=== PATIENT | female | born 1985 | race Two or more races ===

== ENCOUNTER 2020-12-17 16:09 | Inpatient (IN) | payer MEDICAID, OTHER, SELFPAY ==
[2020-12-17] VITALS (13 sets, daily range): BP systolic 98–109; BP diastolic 61–71; PULSE 80–96; RESP 13–18; TEMP 36.2–37.3; O2SAT 100; BMI 21.7
--- NOTE | 2020-12-17 | ECG_ITS ---
Test Reason : CHEST PAIN Blood Pressure : / mmHG Vent. Rate : 095 BPM Atrial Rate : 095 BPM P-R Int : 118 ms QRS Dur : 070 ms QT Int : 358 ms P-R-T Axes : 039 057 032 degrees QTc Int : 449 ms Normal sinus rhythm Normal ECG No previous ECGs available Referred By: Generic ED Physician Electronically Signed By:DEANDRA BRIONES MD
--- NOTE | ~2020-12-17 | XR_ITS ---
EXAMINATION: XR CHEST CLINICAL INFORMATION: SOB COMPARISON: None TECHNIQUE: Frontal view of the chest was obtained. FINDINGS: No significant abnormality is noted involving the heart, lungs, mediastinum, bony thorax or soft tissues. XR/XR chest 1V IMPRESSION: No acute cardiopulmonary process.
--- NOTE | ~2020-12-17 | CT_ITS ---
EXAMINATION: CT ABDOMEN PELVIS WITH IV CONTRAST CLINICAL INFORMATION: History of abdominal pain and colitis. Lower GI bleeding. COMPARISON: CXR from 12/17/2020. TECHNIQUE: Noncontrast as well as contrast-enhanced volumetric helical CT acquisition of the abdomen and pelvis. Axial images are presented at 0.6 mm and 5 mm slice thickness. Coronal and sagittal reformatted images were generated at the technologist workstation. Intravenous contrast: 85 mL of Omnipaque 350. This CT examination was performed using dose optimization techniques as appropriate, variously including the following: *Automated exposure control *Adjustment of mA and/or kV according to patient size (this includes techniques or standardized protocols for targeted exams where dose is matched to indication/reason for exam; i.e. extremities or head) *Use of iterative reconstruction technique DLP: 611 mGy-cm. FINDINGS: LUNG BASES: Unremarkable. LIVER, GALLBLADDER, AND BILIARY TREE: Liver has normal size and contour. There is a focal area of steatosis in the left lobe adjacent to the falciform ligament. No suspicious hepatic lesion. Gallbladder is underdistended. No radiopaque gallstones. No intrahepatic or extrahepatic bile duct dilatation. PANCREAS: Normal. No evidence of pancreatic mass, edema or ductal dilatation. SPLEEN: Normal. ADRENAL GLANDS: Normal. KIDNEYS AND URETERS: The kidneys have normal size, shape, and attenuation. No evidence of renal mass, hydroureteronephrosis, urolithiasis or perinephric edema. BLADDER: Unremarkable. BOWEL AND PERITONEUM: Stomach and small bowel have a normal appearance. Appendix is normal. The wall of the colon is diffusely thickened, consistent with pancolitis. There are regions of mild haziness of pericolonic fat along the descending colon. No pneumatosis intestinalis or pneumoperitoneum. No evidence of contrast extravasation into the lumen of the gastrointestinal tract. No pneumoperitoneum. ABDOMINAL WALL: Unremarkable. LYMPH NODES: No retroperitoneal, iliac or inguinal lymphadenopathy. A few mildly enlarged lymph nodes are seen within the mesentery, largest measuring up to 0.8 cm short axis dimension, likely reactive to the colonic inflammation. VASCULATURE: Abdominal aorta is normal in caliber and its branches are widely patent. Inferior vena cava is normal. PELVIC VISCERA: The anteflexed, anteverted uterus has normal size and contour. No adnexal mass. No pelvic free fluid. MUSCULOSKELETAL: Unremarkable. CT/CT gi bleed abd pel wo/w con IMPRESSION: * Findings are consistent with diffuse colitis. * No CT imaging evidence of an active gastrointestinal bleed.
[2020-12-17 16:44] LABS: MANUAL DIFF FLAG NO
[2020-12-17 16:45] LABS: Basophils Percent Auto 0.2 % (0-2); Eosinophils Absolute Auto 0.4 X10*3/uL (0.0-0.4); Eosinophils Percent Auto 5.3 % (0-4); Imm Gran Abs Auto 0.02 X10*3/uL (0.00-0.03); Imm Gran Pct Auto 0.2 % (0.0-0.4); Lymphocytes Absolute Auto 2.1 X10*3/uL (1.2-4.9); Lymphocytes Percent Auto 26.1 % (20-40); Mean Corpuscular HGB Conc 29.4 g/dl (31.0-35.0); Mean Corpuscular Hemoglobin 21.8 pg (27.0-33.0); Mean Corpuscular Volume 74.1 fL (80-98); Mean Platelet Volume 8.7 fL (9.4-12.3); Monocytes Percent Auto 12.3 % (2-11); Neutrophils Absolute Auto 4.6 X10*3/uL (2.0-8.3); Neutrophils Percent Auto 55.9 % (45-73); Platelet Count 458 X10*3/uL (160-400); Red Blood Count 2.39 X10*6/uL (4.20-5.50); Red Cell Distribution Width 15.7 % (11.0-16.0); White Blood Count 8.2 X10*3/uL (4.8-10.8)
[2020-12-17 16:50] LABS: Hematocrit 17.7 % (37-47); Hemoglobin 5.2 g/dl (12.0-16.0)
[2020-12-17 17:25] LABS: Anion Gap 12 (12-20); Blood Urea Nitrogen 9 mg/dL (9-16); Calcium 8.2 mg/dL (8.4-10.2); Carbon Dioxide 21 mmol/L (22-29); Chloride 108 mmol/L (96-108); Creatinine Clr Calc Pharmacy 89.6; Estimated Glomerular Filt Rate > 60; Glucose Random 88 mg/dL (60-115); Sodium 137 mmol/L (135-145)
[2020-12-17 17:34] LABS: Troponin-I High Sensitivity < 3.5 ng/L (<3.5-17.0)
--- NOTE | 2020-12-17 17:38 | ED.GENADULT ---
HPI - General Adult General Chief complaint: General Medical Stated complaint: chest pressure Time Seen by Provider: 12/17/20 16:51 Source: patient and family Mode of arrival: ambulatory Limitations: no limitations History of Present Illness HPI narrative: 35 y/o female with history of colitis who presents to the ER from home with her partner c/o bloody diarrhea for the last 1 month. She reports at least 3 episodes per day of BRBPR, very watery and loose. She started having some cramping central abdominal pains that double her over a few days ago. She also reports new fatigue, generalized weakness, dizziness, shortness of breath, palpitations and chest pressure for about a week. She reports dealing with colitis for the last 3 years. She was seen by GI at [facility] in April 2020, had colonoscopy and started on mesalamine. She reports minimal improvement in her symptoms since then. The bleeding started about 1 month ago. MD complaint: bloody diarrhea and abdominal pain Onset (ago): week(s) (4) Location: abdomen Radiation: non-radiation Severity: severe Severity scale (1-10): 10 Quality: stabbing and sharp Pain Consistency: intermittent Relieving factors: none Exacerbating factors: none Associated symptoms: loss of appetite, malaise, shortness of breath and weakness Treatments prior to arrival: none Related Data Allergies Allergy/AdvReac Type Severity Reaction Status Date / Time No Known Allergies Allergy Unverified 03/04/20 19:48 [No Known Allergies*] Review of Systems Review of Systems: Constitutional: No Fever, No Chills ENT/Mouth: No sore throat, No Rhinorrhea, No Swallowing Difficulty Eyes: No Eye Pain, No Swelling, No Redness Cardiovascular: + Chest Pain, + SOB, No Orthopnea, No Edema Respiratory: No Cough, No Sputum, No Wheezing, + dyspnea Gastrointestinal: No Nausea, No Vomiting, + Diarrhea, + abdominal Pain, + Hematochezia, No Melena Genitourinary: No Dysuria, No Urinary Frequency, No Hematuria Musculoskeletal: No joint pain, No Myalgias Skin: No Skin Lesions, No rash Neuro: + Weakness, No Numbness, + Dizziness, No Headache Psych: + Anxiety/Panic, No Depression Heme/Lymph: No Bruising, No Lymphadenopathy Endocrine: No Polyuria, No Polydipsia PMFSH Past Medical History Attestation statement: The following information was validated with the patient. Medical History Colitis Social History Social History Alcohol intake: never Patient Tobacco Use Status: Never used Tobacco Smoked in Last 30 Days: No Use of substances other than those prescribed or required for medical reasons: No Any prior treatment program specific to substance use: No Advance Directives: Yes Advance Directives Information Provided: Yes Advance Directives on File: No Patient : No Physical Exam Vital Signs: Vital Signs: Last Vital Signs Temp 98.2 F 12/17/20 18:50 Pulse 84 12/17/20 18:50 Resp 16 12/17/20 18:50 BP 100/66 12/17/20 18:50 Pulse Ox 100 12/17/20 18:31 Body Mass Index 21.7 Appearance: Alert. Oriented X3. No acute distress. Pallor Eyes: Pupils equal, round and reactive to light. Conjuncitval pallor ENT: Pharynx normal. Neck: Normal inspection. Neck supple. CVS: Normal heart rate and rhythm. Pulses normal. Respiratory: No respiratory distress. Breath sounds normal. Abdomen: Soft and nontender. No rebound or guarding. +BS x4 Skin: Skin warm and dry. Pallor noted. Normal skin turgor. No rashes. Extremities: No lower extremity edema. Neuro: Oriented X 3. No motor deficit. No sensory deficit. Course Course Course Narrative: 35 yo female with history of colitis ?ulcerative colitis presenting with bloody diarrhea x1 month and signs and symptoms of acute blood loss anemia. VS are stable. Labs and CT scan ordered for further evalaution. Reevaluation(s) Reevaluation #1: H/H critically low at 5.2/17.7 from a baseline of 11.1/32.5 (over 1.5 years ago). Type and screen ordered and 2 units of blood for severe symptomatic anemia. consent in the chart. Patient will require admission. CT scan changed to GI bleed protocol. Reevaluation #2: CT scan showing diffuse colitis. No active bleeding. IV Levaquin and Flagyl ordered for colitis. Dr. Donis TT for admission. Medical Decision Making Lab Data Result diagrams: 12/17/20 16:39 12/17/20 16:39 Labs: Lab Results 12/17/20 12/17/20 12/17/20 Range/Units 16:39 16:39 16:39 WBC 8.2 (4.8-10.8) X10*3/uL RBC 2.39 L (4.20-5.50) X10*6/uL Hgb 5.2 L* (12.0-16.0) g/dl Hct 17.7 L* (37-47) % MCV 74.1 L (80-98) fL MCH 21.8 L (27.0-33.0) pg MCHC 29.4 L (31.0-35.0) g/dl RDW 15.7 (11.0-16.0) % Plt Count 458 H (160-400) X10*3/uL MPV 8.7 L (9.4-12.3) fL Immature Gran % (Auto) 0.2 (0.0-0.4) % Neut % (Auto) 55.9 (45-73) % Lymph % (Auto) 26.1 (20-40) % [place] % (Auto) 12.3 H (2-11) % Eos % (Auto) 5.3 H (0-4) % Baso % (Auto) 0.2 (0-2) % Lymph # (Auto) 2.1 (1.2-4.9) X10*3/uL [place] # (Auto) 1.0 (0.1-1.2) X10*3/uL Eos # (Auto) 0.4 (0.0-0.4) X10*3/uL Baso # (Auto) 0.0 (0.0-0.2) X10*3/uL Abs Immat Gran (auto) 0.02 (0.00-0.03) X10*3/uL Absolute Neuts (auto) 4.6 (2.0-8.3) X10*3/uL Absolute Nucleated RBC 0.000 (0.0-0.012) X10*3/uL Nucleated RBC % (auto) 0.0 (0.0-0.2) /100WBC Sodium 137 (135-145) mmol/L Potassium 4.0 (3.3-5.1) mmol/L Chloride 108 (96-108) mmol/L Carbon Dioxide 21 L (22-29) mmol/L Anion Gap 12 (12-20) BUN 9 (9-16) mg/dL Creatinine 0.82 (0.5-1.4) mg/dL Estim Creat Clear Calc 89.6 Estimated GFR > 60 Random Glucose 88 (60-115) mg/dL Lactic Acid (0.5-2.0) mmol/L Calcium 8.2 L (8.4-10.2) mg/dL Troponin I High Sens < 3.5 (<3.5-17.0) ng/L Blood Type Antibody Screen Crossmatch 12/17/20 12/17/20 Range/Units 17:05 17:22 WBC (4.8-10.8) X10*3/uL RBC (4.20-5.50) X10*6/uL Hgb (12.0-16.0) g/dl Hct (37-47) % MCV (80-98) fL MCH (27.0-33.0) pg MCHC (31.0-35.0) g/dl RDW (11.0-16.0) % Plt Count (160-400) X10*3/uL MPV (9.4-12.3) fL Immature Gran % (Auto) (0.0-0.4) % Neut % (Auto) (45-73) % Lymph % (Auto) (20-40) % [place] % (Auto) (2-11) % Eos % (Auto) (0-4) % Baso % (Auto) (0-2) % Lymph # (Auto) (1.2-4.9) X10*3/uL [place] # (Auto) (0.1-1.2) X10*3/uL Eos # (Auto) (0.0-0.4) X10*3/uL Baso # (Auto) (0.0-0.2) X10*3/uL Abs Immat Gran (auto) (0.00-0.03) X10*3/uL Absolute Neuts (auto) (2.0-8.3) X10*3/uL Absolute Nucleated RBC (0.0-0.012) X10*3/uL Nucleated RBC % (auto) (0.0-0.2) /100WBC Sodium (135-145) mmol/L Potassium (3.3-5.1) mmol/L Chloride (96-108) mmol/L Carbon Dioxide (22-29) mmol/L Anion Gap (12-20) BUN (9-16) mg/dL Creatinine (0.5-1.4) mg/dL Estim Creat Clear Calc Estimated GFR Random Glucose (60-115) mg/dL Lactic Acid 1.0 (0.5-2.0) mmol/L Calcium (8.4-10.2) mg/dL Troponin I High Sens (<3.5-17.0) ng/L Blood Type O Positive Antibody Screen NEGATIVE Crossmatch See Detail ECG Data Attestation: I personally reviewed and interpreted this ECG as follows: Interpretation: normal sinus rhythm, HR 95 bpm, normal TN interval, normal QTc, NO ST segment elevations or depressions Critical Care Time Critical Care Time Critical Care Time: Yes Total Critical Care Time: 60 Attestation: I have personally provided critical care time exclusive of time spent on separately billable procedures. Time includes review of lab data, radiology results, discussion with consultants, and monitoring for potential decompensation. Intervention performed as documented. Discharge Plan Discharge Clinical Impression: Acute blood loss anemia, Colitis Patient Disposition: Admitted As Inpatient
[2020-12-17] MEDS: iohexoL 350 MG/ML 100 ML INFUS..BTL IV (18:05)
--- NOTE | 2020-12-17 18:38 | PC.NURSE ---
IV established, pt has signed consent form nd is getting first unit of blood. She denies any SX of transfusion reaction at this time
--- NOTE | 2020-12-17 18:52 | PC.NURSE ---
pt states she has o symptoms of transusion reaction, no pain, no feer or chills, no SOB. will continue to monitor
--- NOTE | 2020-12-17 19:53 | PHA.MEDREC ---
Pharmacy Consult ? Medication Reconciliation Pharmacy has completed the medication reconciliation.
[2020-12-17] MEDS: metroNIDAZOLE/NS 500 MG/100 ML PIGGYBACK 100 MG IV (20:06)
[2020-12-17 20:14] LABS: COVID-19 Test Negative (Negative); IDNOW Serial# 9DD0AD1C
[2020-12-17] MEDS: levoFLOXacin/D5W 750 MG/150 ML PIGGYBACK 100 MG IV (21:30)
--- NOTE | 2020-12-17 21:59 | PC.NURSE ---
pt without cp, sob, difficulty breathing, back pain, abd pain, f/ch. Pt tolerating 2nd unit of blood without complaints/incidence.
[2020-12-17 22:49] LABS: Glucose, Whole Blood 87 mg/dL (60-115)
[2020-12-17] MEDS: methylPREDNISolone Sod Succ 40 MG/ML VIAL 20 MG IVPUSH (23:42)
[2020-12-17] MEDS: 0.9 % Sodium Chloride Flush 3 ML SYRINGE IVFLUSH (23:42)
[2020-12-18 00:07] VITALS: BMI 20.2
[2020-12-18 01:04] LABS: Hematocrit 25.4 % (37-47); Hemoglobin 7.8 g/dl (12.0-16.0)
[2020-12-18 04:00] VITALS: BP 107/62; PULSE 78; RESP 18; TEMP 36.7; O2SAT 99
[2020-12-18] MEDS: methylPREDNISolone Sod Succ 40 MG/ML VIAL 20 MG IVPUSH ×3 (05:22→22:48)
[2020-12-18 06:44] LABS: MANUAL DIFF FLAG NO
[2020-12-18 06:54] LABS: Basophils Absolute Auto 0.1 X10*3/uL (0.0-0.2); Basophils Percent Auto 0.7 % (0-2); Eosinophils Absolute Auto 0.5 X10*3/uL (0.0-0.4); Eosinophils Percent Auto 6.1 % (0-4); Hematocrit 24.5 % (37-47); Hemoglobin 7.6 g/dl (12.0-16.0); Imm Gran Abs Auto 0.04 X10*3/uL (0.00-0.03); Imm Gran Pct Auto 0.5 % (0.0-0.4); Lymphocytes Absolute Auto 1.6 X10*3/uL (1.2-4.9); Lymphocytes Percent Auto 21.1 % (20-40); Mean Corpuscular Hemoglobin 24.4 pg (27.0-33.0); Mean Corpuscular Volume 78.5 fL (80-98); Mean Platelet Volume 9.1 fL (9.4-12.3); Monocytes Absolute Auto 1.1 X10*3/uL (0.1-1.2); Monocytes Percent Auto 13.9 % (2-11); Neutrophils Absolute Auto 4.4 X10*3/uL (2.0-8.3); Neutrophils Percent Auto 57.7 % (45-73); Platelet Count 381 X10*3/uL (160-400); Red Blood Count 3.12 X10*6/uL (4.20-5.50); White Blood Count 7.5 X10*3/uL (4.8-10.8)
--- NOTE | 2020-12-18 06:56 | P.HPHOSP_ITS ---
History of Present Illness Date of Service: 12/18/20 Chief Complaint: abd pain, bloody diarrhea this is a 35-year-old female with past medical history of colitis who presents to the hospital with 1 month history of diarrhea and abdominal pain. Patient reports that her abdominal pain is localized to the middle of the abdomen radiating to the lower abdomen, feels crampy, 10/10, associated with bloody diarrhea about 5 to and today. Patient waited this long to come into the ED because she thought it would get better. Patient reports that she has not had a lot of follow-up outpatient due to lack of insurance. She denies any chest pain, no headache, no change in vision, no shortness of breath, no urinary symptoms and no lower extremity edema. Patient has been eating and drinking well, some nausea with no vomiting. On arrival to the ED patient hemodynamically stable with no significant abnormal vitals Labs are significant for WBC count of 8.2, hemoglobin of 5.2 which dropped from 11.1 on June of 2019, hematocrit of 17.7, CT abdomen showed diffuse colitis, with no evidence of gastrointestinal bleeding GI was consulted and patient will be admitted for further man Review of Systems Review of Systems: Yes all other systems are reviewed and are negative [facility] Medical History (Updated 12/18/20 @ 06:59 by Leonid Donis MD) Colitis History of ulcerative colitis Social History Household Members: Significant Other Housing: Apartment Alcohol intake: never Patient Tobacco Use Status: Never used Tobacco Smoked in Last 30 Days: No Patient Interested in Nicotine Replacement: No Patient Given Instructions on How to Stop Smoking: No Second Hand Smoke Exposure: No Use of substances other than those prescribed or required for medical reasons: No Currently Displaying Signs/Symptoms of Drug Intoxication Withdrawal: No Any prior treatment program specific to substance use: No Have you been hit, kicked, punched, or otherwise hurt by someone within the past year? If so, by whom?: No Do you feel safe in your current relationship?: Yes Is there a partner from a previous relationship who is making you feel unsafe now?: No Are you made to feel afraid or neglected: No Advance Directives: Yes Advance Directives Information Provided: Yes Advance Directives on File: No Advance Directives Date on File: 12/18/20 Do you have thoughts of harming others: None Do you have a plan to hurt others: No Plan Recently lost weight without trying: Yes How much weight loss: 2-13 pounds Eating poorly because of decreased appetite: Yes Nutrition screen score: 4 Patient : No : No Poor oral hygiene: No Meds Allergies Allergy/AdvReac Type Severity Reaction Status Date / Time No Known Allergies Allergy Unverified 03/04/20 19:48 [No Known Allergies*] Active Medications: Current Medications Generic Name Dose Route Start Last Admin Trade Name Freq PRN Reason Stop Dose Admin Acetaminophen 650 mg 12/17/20 21:38 Acetaminophen 325 Mg Tablet PO Q6H PRN Pain, Mild (Pain Scale 1-3) Docusate Sodium 100 mg 12/17/20 21:38 Docusate Sodium 100 Mg Capsule PO DAILY PRN Constipation Methylprednisolone Sodium Succinate 20 mg 12/17/20 22:00 12/18/20 05:22 Methylprednisolone Sod Succ 40 Mg/Ml Vial IVPUSH 20 mg Q8H ROBERT Administration Morphine Sulfate 4 mg 12/17/20 21:38 Morphine Sulfate 4 Mg/Ml Cartridge IVPUSH Q4H PRN Pain, Severe (Pain Scale 7-10) Non-Formulary Medication 4.8 gm 12/18/20 09:00 Mesalamine [Lialda] PO DAILY ROBERT Ondansetron HCl 4 mg 12/17/20 21:38 Ondansetron Hcl 4 Mg/2 Ml Vial IVPUSH Q8H PRN Nausea and Vomiting Pharmacy Consult 1 each 12/17/20 19:36 Consult Rx Perform Med Rec MISCELLANE ONCE PRN Consult order Sodium Chloride 3 ml 12/18/20 00:00 12/17/20 23:42 0.9 % Sodium Chloride Flush 3 Ml Syringe IVFLUSH 3 ml QSHIFT ROBERT Administration Home Medications Medication Instructions Recorded Confirmed Last Taken Type mesalamine [Lialda] 4.8 g PO DAILY 12/17/20 12/17/20 12/17/20 History Physical Exam Vital Signs and Narrative: Vital Signs: Last Vital Signs Temp 98.1 F 12/18/20 04:00 Pulse 78 12/18/20 04:00 Resp 18 12/18/20 04:00 BP 107/62 12/18/20 04:00 Pulse Ox 99 12/18/20 04:00 Body Mass Index 20.2 Const: General: cooperative and no acute distress Orientation/consciousness: patient oriented x3 Eyes: General: appearance normal, both eyes and all related structures Resp: Effort & Inspection: normal respiratory effort and able to speak in complete sentences Cardio: Rate: regular rate Rhythm: regular rhythm GI: Other: mild tenderness to deep palpation in the periumbilical and lower abdomen region, no rebound or guarding Palpation (GI): Soft to palpation Auscultation: normal bowel sounds Skin: General skin exam: no rashes or lesions noted Neuro: General: patient oriented x3 Cognition (Neuro): normal cognition Extrem: General: Yes normal to inspection and Yes no pedal edema Results Labs CBC and Chem 7: 12/18/20 00:54 12/17/20 16:39 Labs: Laboratory Results - last 24 hr 12/17/20 12/17/20 12/17/20 16:39 16:39 16:39 MCV 74.1 L MCH 21.8 L MCHC 29.4 L RDW 15.7 Plt Count 458 H MPV 8.7 L Immature Gran % (Auto) 0.2 Neut % (Auto) 55.9 Lymph % (Auto) 26.1 [place] % (Auto) 12.3 H Eos % (Auto) 5.3 H Baso % (Auto) 0.2 Lymph # (Auto) 2.1 [place] # (Auto) 1.0 Eos # (Auto) 0.4 Baso # (Auto) 0.0 Abs Immat Gran (auto) 0.02 Absolute Neuts (auto) 4.6 Absolute Nucleated RBC 0.000 Nucleated RBC % (auto) 0.0 Anion Gap 12 Estim Creat Clear Calc 89.6 Estimated GFR > 60 POC Glucose Random Glucose 88 Lactic Acid Calcium 8.2 L Troponin I High Sens < 3.5 COVID-19 (RENNY) COVID-19 Clin Com Blood Type Antibody Screen Crossmatch 12/17/20 12/17/20 12/17/20 17:05 17:22 19:54 MCV MCH MCHC RDW Plt Count MPV Immature Gran % (Auto) Neut % (Auto) Lymph % (Auto) [place] % (Auto) Eos % (Auto) Baso % (Auto) Lymph # (Auto) [place] # (Auto) Eos # (Auto) Baso # (Auto) Abs Immat Gran (auto) Absolute Neuts (auto) Absolute Nucleated RBC Nucleated RBC % (auto) Anion Gap Estim Creat Clear Calc Estimated GFR POC Glucose Random Glucose Lactic Acid 1.0 Calcium Troponin I High Sens COVID-19 (RENNY) Negative COVID-19 Clin Com See Note Blood Type O Positive Antibody Screen NEGATIVE Crossmatch See Detail 12/17/20 22:45 MCV MCH MCHC RDW Plt Count MPV Immature Gran % (Auto) Neut % (Auto) Lymph % (Auto) [place] % (Auto) Eos % (Auto) Baso % (Auto) Lymph # (Auto) [place] # (Auto) Eos # (Auto) Baso # (Auto) Abs Immat Gran (auto) Absolute Neuts (auto) Absolute Nucleated RBC Nucleated RBC % (auto) Anion Gap Estim Creat Clear Calc Estimated GFR POC Glucose 87 Random Glucose Lactic Acid Calcium Troponin I High Sens COVID-19 (RENNY) COVID-19 Clin Com Blood Type Antibody Screen Crossmatch Imaging Radiologist's Impressions: Impressions Chest X-Ray 12/17/20 16:53 IMPRESSION: No acute cardiopulmonary process. Abdomen/Pelvis CT 12/17/20 17:10 IMPRESSION: * Findings are consistent with diffuse colitis. * No CT imaging evidence of an active gastrointestinal bleed. Assessment and Plan (1) Acute blood loss anemia: Status: Acute (2) Colitis: Status: Acute 5-year-old female who presents to the hospital with abdominal pain. Patient has history of ulcerative colitis. # Ulcerative colitis flare - patient has had bloody diarrhea for past 1 month - CT abdomen showing diffuse colitis - afebrile, no leukocytosis - colitis seen on CT is most likely inflammatory and not infectious - will start her on steroids, Flagyl - consult GI # acute blood loss anemia - patient with a hemoglobin of 5.5 with a hematocrit 17.7 - sources most likely abdomen in the bloody diarrhea - patient transfused 2 units of PRBC - hemoglobin above 7 - will consult GI - ppi IV b.i.d. DVT prophylaxis: SCDs in the setting of GI bleed Quality Stroke Does the patient have a stroke diagnosis?: No VTE Prior VTE?: No VTE Risk Level:: Medical - moderate - high VTE Device Contraindication: N/A - Device Ordered VTE Drug Contraindication: Treatment Not Tolerated
[2020-12-18 07:02] VITALS: BP 108/69; PULSE 92; RESP 18; TEMP 36.6; O2SAT 98
[2020-12-18 07:16] LABS: Anion Gap 13 (12-20); Blood Urea Nitrogen 5 mg/dL (9-16); Calcium 8.1 mg/dL (8.4-10.2); Carbon Dioxide 20 mmol/L (22-29); Chloride 109 mmol/L (96-108); Creatinine Clr Calc Pharmacy 91.9; Estimated Glomerular Filt Rate > 60; Glucose Random 82 mg/dL (60-115); Potassium 4.4 mmol/L (3.3-5.1); Sodium 138 mmol/L (135-145)
[2020-12-18] MEDS: 0.9 % Sodium Chloride Flush 3 ML SYRINGE IVFLUSH ×3 (08:35→22:49)
[2020-12-18] MEDS: Pantoprazole Sodium 40 MG/10 ML VIAL IVPUSH ×2 (08:37→17:41)
[2020-12-18] MEDS: metroNIDAZOLE/NS 500 MG/100 ML PIGGYBACK 100 MG IV ×3 (08:38→22:48)
[2020-12-18 10:56] VITALS: BP 105/77; PULSE 83; RESP 18; TEMP 36.6; O2SAT 99
--- NOTE | 2020-12-18 14:02 | HO.PM.IMPN ---
Subjective Subjective Date of Service: 12/18/20 Interval History: the patient was seen and evaluated this morning Laying in bed, feels little better today decreased abdominal pain and diarrhea Denies any fever, chills or shortness of breath No reported other overnight events. Systemic review: No fever, chills or weakness No chest pain, palpitation No shortness of breath or coughing abdominal pain mild improving, diarrhea resolved No urinary symptoms No any rash or wounds Physical Exam Vital Signs: Vital Signs: Last Vital Signs Temp 97.8 F 12/18/20 10:56 Pulse 83 12/18/20 10:56 Resp 18 12/18/20 10:56 BP 105/77 12/18/20 10:56 Pulse Ox 99 12/18/20 10:56 Body Mass Index 20.2 Const: Other: Constitutional : Alert, oriented, not in distress Neck : Normal inspection, Supple Cardiovascular : RRR, S1 S2, no lower extremity edema Respiratory : Good bilateral air entry, no crackles, wheezes or rhonchi Gastrointestinal: soft, lax, Normal bowel sounds, generalized tenderness of the abdomen mainly in the right lower quadrant Skin : Warm/Dry, No rash Neurological : Alert & oriented x3, No focal deficit Objective Data Current Medications Generic Name Dose Route Start Last Admin Trade Name Freq PRN Reason Stop Dose Admin Acetaminophen 650 mg 12/17/20 21:38 Acetaminophen 325 Mg Tablet PO Q6H PRN Pain, Mild (Pain Scale 1-3) Docusate Sodium 100 mg 12/17/20 21:38 Docusate Sodium 100 Mg Capsule PO DAILY PRN Constipation Metronidazole 500 mg in 100 mls @ 100 mls/hr 12/18/20 07:00 12/18/20 10:30 Flagyl IV Infused Q8H ROBERT Infusion Methylprednisolone Sodium Succinate 20 mg 12/17/20 22:00 12/18/20 05:22 Methylprednisolone Sod Succ 40 Mg/Ml Vial IVPUSH 20 mg Q8H ROBERT Administration Morphine Sulfate 4 mg 12/17/20 21:38 Morphine Sulfate 4 Mg/Ml Cartridge IVPUSH Q4H PRN Pain, Severe (Pain Scale 7-10) Non-Formulary Medication 4.8 gm 12/18/20 09:00 Mesalamine [Lialda] PO DAILY ROBERT Ondansetron HCl 4 mg 12/17/20 21:38 Ondansetron Hcl 4 Mg/2 Ml Vial IVPUSH Q8H PRN Nausea and Vomiting Pantoprazole Sodium 40 mg 12/18/20 07:15 12/18/20 08:37 Pantoprazole Sodium 40 Mg/10 Ml Vial IVPUSH 40 mg [id number] [facility] Administration Pharmacy Consult 1 each 12/17/20 19:36 Consult Rx Perform Med Rec MISCELLANE ONCE PRN Consult order Sodium Chloride 3 ml 12/18/20 00:00 12/18/20 08:35 0.9 % Sodium Chloride Flush 3 Ml Syringe IVFLUSH 3 ml QSHIFT [facility] Administration Labs CBC & Chem 7: 12/18/20 05:09 12/18/20 05:08 Labs: Laboratory Results - last 24 hr 12/17/20 12/17/20 12/17/20 16:39 16:39 16:39 WBC 8.2 RBC 2.39 L Hgb 5.2 L* Hct 17.7 L* MCV 74.1 L MCH 21.8 L MCHC 29.4 L RDW 15.7 Plt Count 458 H MPV 8.7 L Immature Gran % (Auto) 0.2 Neut % (Auto) 55.9 Lymph % (Auto) 26.1 [place] % (Auto) 12.3 H Eos % (Auto) 5.3 H Baso % (Auto) 0.2 Lymph # (Auto) 2.1 [place] # (Auto) 1.0 Eos # (Auto) 0.4 Baso # (Auto) 0.0 Abs Immat Gran (auto) 0.02 Absolute Neuts (auto) 4.6 Absolute Nucleated RBC 0.000 Nucleated RBC % (auto) 0.0 Sodium 137 Potassium 4.0 Chloride 108 Carbon Dioxide 21 L Anion Gap 12 BUN 9 Creatinine 0.82 Estim Creat Clear Calc 89.6 Estimated GFR > 60 POC Glucose Random Glucose 88 Lactic Acid Calcium 8.2 L Troponin I High Sens < 3.5 COVID-19 ([facility]ENNY) COVID-19 Clin Com Blood Type Antibody Screen Crossmatch 12/17/20 12/17/20 12/17/20 17:05 17:22 19:54 WBC RBC Hgb Hct MCV MCH MCHC RDW Plt Count MPV Immature Gran % (Auto) Neut % (Auto) Lymph % (Auto) [place] % (Auto) Eos % (Auto) Baso % (Auto) Lymph # (Auto) [place] # (Auto) Eos # (Auto) Baso # (Auto) Abs Immat Gran (auto) Absolute Neuts (auto) Absolute Nucleated RBC Nucleated RBC % (auto) Sodium Potassium Chloride Carbon Dioxide Anion Gap BUN Creatinine Estim Creat Clear Calc Estimated GFR POC Glucose Random Glucose Lactic Acid 1.0 Calcium Troponin I High Sens COVID-19 ([facility]ENNY) Negative COVID-19 Clin Com See Note Blood Type O Positive Antibody Screen NEGATIVE Crossmatch See Detail 12/17/20 12/18/20 12/18/20 22:45 00:54 05:08 WBC RBC Hgb 7.8 L D Hct 25.4 L D MCV MCH MCHC RDW Plt Count MPV Immature Gran % (Auto) Neut % (Auto) Lymph % (Auto) [place] % (Auto) Eos % (Auto) Baso % (Auto) Lymph # (Auto) [place] # (Auto) Eos # (Auto) Baso # (Auto) Abs Immat Gran (auto) Absolute Neuts (auto) Absolute Nucleated RBC Nucleated RBC % (auto) Sodium 138 Potassium 4.4 Chloride 109 H Carbon Dioxide 20 L Anion Gap 13 BUN 5 L Creatinine 0.77 Estim Creat Clear Calc 91.9 Estimated GFR > 60 POC Glucose 87 Random Glucose 82 Lactic Acid Calcium 8.1 L Troponin I High Sens COVID-19 ([facility]ENNY) COVID-19 Clin Com Blood Type Antibody Screen Crossmatch 12/18/20 05:09 WBC 7.5 RBC 3.12 L D Hgb 7.6 L Hct 24.5 L MCV 78.5 L MCH 24.4 L MCHC 31.0 RDW 18.0 H Plt Count 381 MPV 9.1 L Immature Gran % (Auto) 0.5 H Neut % (Auto) 57.7 Lymph % (Auto) 21.1 [place] % (Auto) 13.9 H Eos % (Auto) 6.1 H Baso % (Auto) 0.7 Lymph # (Auto) 1.6 [place] # (Auto) 1.1 Eos # (Auto) 0.5 H Baso # (Auto) 0.1 Abs Immat Gran (auto) 0.04 H Absolute Neuts (auto) 4.4 Absolute Nucleated RBC 0.000 Nucleated RBC % (auto) 0.0 Sodium Potassium Chloride Carbon Dioxide Anion Gap BUN Creatinine Estim Creat Clear Calc Estimated GFR POC Glucose Random Glucose Lactic Acid Calcium Troponin I High Sens COVID-19 ([facility]) COVID-19 Clin Com Blood Type Antibody Screen Crossmatch Quality Stroke Does the patient have a stroke diagnosis?: No VTE Prior VTE?: No VTE Risk Level:: Medical - moderate - high VTE Device Contraindication: N/A - Device Ordered VTE Drug Contraindication: Treatment Not Tolerated Assessment and Plan (1) Acute blood loss anemia: Status: Acute (2) Colitis: Status: Acute Assessment and Plan: 5-year-old female who presents to the hospital with abdominal pain. Patient has history of ulcerative colitis. Ulcerative colitis flare feels better today CT abdomen showing diffuse colitis afebrile, no leukocytosis colitis seen on CT is most likely inflammatory and not infectious Continue IV steroids, Flagyl pending GI consult # acute blood loss anemia # symptomatic anemia patient lethargy and shortness of breath improved patient with a hemoglobin of 5.5 improved to 7.6 after 2 units transfusion Goal to keep hemoglobin above 7 ppi IV b.i.d. to check iron studies DVT prophylaxis SCDs in the setting of GI bleed
[2020-12-18 14:33] LABS: Iron 211 mcg/dL (30-160); Percent Iron Saturation 59 % (15-50); Total Iron Binding Capacity 356 mcg/dL (228-428); Unsaturated Iron Binding 145 ug/dL
[2020-12-18 15:28] VITALS: BP 100/55; PULSE 90; RESP 15; TEMP 36.9; O2SAT 100
[2020-12-18 19:19] VITALS: BP 99/60; PULSE 90; RESP 15; TEMP 36.7; O2SAT 98
[2020-12-18 23:27] VITALS: BP 100/64; PULSE 90; RESP 15; TEMP 36.1; O2SAT 97
[2020-12-19 03:59] VITALS: BP 99/65; PULSE 90; RESP 18; TEMP 36.7; O2SAT 99
[2020-12-19] MEDS: Pantoprazole Sodium 40 MG/10 ML VIAL IVPUSH (05:35)
[2020-12-19] MEDS: methylPREDNISolone Sod Succ 40 MG/ML VIAL 20 MG IVPUSH ×2 (05:35→13:19)
[2020-12-19] MEDS: metroNIDAZOLE/NS 500 MG/100 ML PIGGYBACK 100 MG IV (05:35)
--- NOTE | 2020-12-19 06:21 | PM.GICN ---
History of Present Illness Data of Consult Service Date: 12/19/20 Requesting physician: Latosha Monroy Primary Care Provider: Unknown Physician HPI Reason for consult: colitis 35-year-old female with past medical history of UC who I am seeing for assessment of anemia and worsening colitis. She presented to the hospital with 1 month history of diarrhea and mid abdominal pain going into lower abdo crampy in nature associated with 5bloody stools/day. Appetite has been normal. She denies nausea or vomiting, no fevers or chills, no mouth ulcers, joint pains or eye symptoms. Not been using nsaid, no sick contacts or abx in last 3-6 months. Non smoker. SHe said she had tr diagnosed with UC last Nov at [facility] for similar sx and was prescribed apriso but cut to half as she thought it was constipating her. Since being on flagyl and steroids she feels much better and has not had any more diarrhea or blood. She feels back to normal. TESTS: Labs:WBC count of 8.2, hemoglobin of 5.2 which dropped from 11.1 on June of 2019, hematocrit of 17.7, Imaging: CT abdomen showed diffuse colitis, with no evidence of gastrointestinal bleeding--personal review appears to be more centered on left colon and distal transverse Review of Systems Review of Systems: Constitutional: No Fever, No Chills ENT/Mouth: No sore throat, No Rhinorrhea, No Swallowing Difficulty Eyes: No Eye Pain, No Swelling, No Redness Cardiovascular: + Chest Pain, + SOB, No Orthopnea, No Edema Respiratory: No Cough, No Sputum, No Wheezing, + dyspnea Gastrointestinal: No Nausea, No Vomiting, + Diarrhea, + abdominal Pain, + Hematochezia, No Melena Genitourinary: No Dysuria, No Urinary Frequency, No Hematuria Musculoskeletal: No joint pain, No Myalgias Skin: No Skin Lesions, No rash Neuro: + Weakness, No Numbness, + Dizziness, No Headache Psych: + Anxiety/Panic, No Depression Heme/Lymph: No Bruising, No Lymphadenopathy Endocrine: No Polyuria, No Polydipsia Yes all other systems are reviewed and are negative [facility] Past Medical History Medical History (Updated 12/19/20 @ 13:34 by Latosha Monroy MD) Colitis History of ulcerative colitis Social History Social History Household Members: Significant Other Housing: Apartment Alcohol intake: never Patient Tobacco Use Status: Never used Tobacco Smoked in Last 30 Days: No Patient Interested in Nicotine Replacement: No Patient Given Instructions on How to Stop Smoking: No Second Hand Smoke Exposure: No Use of substances other than those prescribed or required for medical reasons: No Currently Displaying Signs/Symptoms of Drug Intoxication Withdrawal: No Any prior treatment program specific to substance use: No Have you been hit, kicked, punched, or otherwise hurt by someone within the past year? If so, by whom?: No Do you feel safe in your current relationship?: Yes Is there a partner from a previous relationship who is making you feel unsafe now?: No Are you made to feel afraid or neglected: No Advance Directives: Yes Advance Directives Information Provided: Yes Advance Directives on File: No Advance Directives Date on File: 12/18/20 Do you have thoughts of harming others: None Do you have a plan to hurt others: No Plan Recently lost weight without trying: Yes How much weight loss: 2-13 pounds Eating poorly because of decreased appetite: Yes Nutrition screen score: 4 Patient : No : No Poor oral hygiene: No service: No Current occupational status: unemployed Meds Allergies Allergy/AdvReac Type Severity Reaction Status Date / Time No Known Allergies Allergy Unverified 03/04/20 19:48 [No Known Allergies*] Active Medications: Current Medications Generic Name Dose Route Start Last Admin Trade Name Freq PRN Reason Stop Dose Admin Acetaminophen 650 mg 12/17/20 21:38 Acetaminophen 325 Mg Tablet PO Q6H PRN Pain, Mild (Pain Scale 1-3) Docusate Sodium 100 mg 12/17/20 21:38 Docusate Sodium 100 Mg Capsule PO DAILY PRN Constipation Metronidazole 500 mg in 100 mls @ 100 mls/hr 12/18/20 07:00 12/19/20 05:35 Flagyl IV 100 mls/hr Q8H ROBERT Administration Methylprednisolone Sodium Succinate 20 mg 12/17/20 22:00 12/19/20 05:35 Methylprednisolone Sod Succ 40 Mg/Ml Vial IVPUSH 20 mg Q8H ROBERT Administration Morphine Sulfate 4 mg 12/17/20 21:38 Morphine Sulfate 4 Mg/Ml Cartridge IVPUSH Q4H PRN Pain, Severe (Pain Scale 7-10) Non-Formulary Medication 4.8 gm 12/18/20 09:00 12/18/20 17:42 Mesalamine [Lialda] PO 2.4 gm DAILY ROBERT Administration Ondansetron HCl 4 mg 12/17/20 21:38 Ondansetron Hcl 4 Mg/2 Ml Vial IVPUSH Q8H PRN Nausea and Vomiting Pantoprazole Sodium 40 mg 12/18/20 07:15 12/19/20 05:35 Pantoprazole Sodium 40 Mg/10 Ml Vial IVPUSH 40 mg BID@[id number] [facility] Administration Pharmacy Consult 1 each 12/17/20 19:36 Consult Rx Perform Med Rec MISCELLANE ONCE PRN Consult order Sodium Chloride 3 ml 12/18/20 00:00 12/18/20 22:49 0.9 % Sodium Chloride Flush 3 Ml Syringe IVFLUSH 3 ml QSHIFT [facility] Administration Physical Exam Vital Signs: Vital Signs: Last Vital Signs Temp 98.0 F 12/19/20 03:59 Pulse 90 12/19/20 03:59 Resp 18 12/19/20 03:59 BP 99/65 12/19/20 03:59 Pulse Ox 99 12/19/20 03:59 Body Mass Index 20.2 Const: Other: Constitutional : Alert, oriented, not in distress Neck : Normal inspection, Supple Cardiovascular : RRR, S1 S2, no lower extremity edema Respiratory : Good bilateral air entry, no crackles, wheezes or rhonchi Gastrointestinal: soft, lax, Normal bowel sounds, abdomen non tender Skin : Warm/Dry, No rash Neurological : Alert & oriented x3, No focal deficit General: cooperative and no acute distress Orientation/consciousness: patient oriented x3 Eyes: General: appearance normal, both eyes and all related structures Resp: Effort & Inspection: normal respiratory effort and able to speak in complete sentences Cardio: Rate: regular rate Rhythm: regular rhythm GI: Palpation (GI): Soft to palpation Auscultation: normal bowel sounds Skin: General skin exam: no rashes or lesions noted Neuro: General: patient oriented x3 Cognition (Neuro): normal cognition Extrem: General: Yes normal to inspection and Yes no pedal edema Psych: Appearance: grossly normal Results Labs CBC & Chem 7: 12/19/20 08:49 12/19/20 08:49 Labs: Short CBC 12/18/20 Range/Units 05:09 WBC 7.5 (4.8-10.8) X10*3/uL Hgb 7.6 L (12.0-16.0) g/dl Hct 24.5 L (37-47) % Plt Count 381 (160-400) X10*3/uL BMP 12/18/20 05:08 Sodium 138 Potassium 4.4 Chloride 109 H Carbon Dioxide 20 L BUN 5 L Creatinine 0.[address] personally reviewed with colonic thickening and stranding noted Microbiology Microbiology Results: Microbiology 12/17/20 17:22 Blood - Venous Blood Culture - Preliminary No growth after 24 hours. 12/17/20 17:12 Blood - Venous Blood Culture - Preliminary No growth after 24 hours. Assessment and Plan (1) Acute blood loss anemia: Status: Acute (2) Colitis: Status: Acute 1/ Anemia from chronic colitis, acitve disease with sub optimal apriso dosing. Symptoms improved now, unabel to give sample for c diff PLAN: 1/ Would send home wth steroid taper over 3-4 weeks 2/ increase apriso to full dose, can add stool softener or miralax if needed 3/ if sx persist or worsen then she will need step up to biologic or immunosuppressant like imuran 4/ get path and colonoscpy report from [facility] 5/ can check o/p for hep, TB, Vit D, and zinc levels, vaccinations 6/ send home with PO iron --can Use IV if intolerant, will f/u at d/c Procedures Date of Service Date of Service: 12/19/20
[2020-12-19 07:44] VITALS: BP 96/66; PULSE 83; RESP 16; TEMP 35.7; O2SAT 100
[2020-12-19] MEDS: 0.9 % Sodium Chloride Flush 3 ML SYRINGE IVFLUSH (08:36)
[2020-12-19 09:02] LABS: Hematocrit 28.2 % (37-47); Hemoglobin 8.6 g/dl (12.0-16.0); Mean Corpuscular HGB Conc 30.5 g/dl (31.0-35.0); Mean Corpuscular Hemoglobin 24.5 pg (27.0-33.0); Mean Corpuscular Volume 80.3 fL (80-98); Mean Platelet Volume 8.9 fL (9.4-12.3); Platelet Count 497 X10*3/uL (160-400); Red Blood Count 3.51 X10*6/uL (4.20-5.50); Red Cell Distribution Width 18.6 % (11.0-16.0)
[2020-12-19 09:22] LABS: Anion Gap 15 (12-20); Blood Urea Nitrogen 7 mg/dL (9-16); Carbon Dioxide 20 mmol/L (22-29); Chloride 106 mmol/L (96-108); Creatinine Clr Calc Pharmacy 78.6; Estimated Glomerular Filt Rate > 60; Glucose Random 240 mg/dL (60-115); Potassium 4.5 mmol/L (3.3-5.1); Sodium 136 mmol/L (135-145)
[2020-12-19 09:28] LABS: Calcium 8.7 mg/dL (8.4-10.2)
[2020-12-19 11:04] VITALS: BP 91/63; PULSE 89; RESP 18; O2SAT 100
--- NOTE | 2020-12-19 12:32 | MHC.CM.PN ---
Addendum entered by Tanika Lyles 12/19/20 14:51: PT CLEARED TO DISCHARGE HOME TODAY WITH NO SERVICES Original Note: PT REPORTS LIVING WITH HER S/O, FAIZAN AND BEING INDEPENDENT WITH ALL CARE. PT DENIES THE USE OF DME AND HAS NO HOME/COMMUNITY SERVICES. PT DOES NOT HAVE A PCP DUE TO LIMITED INSURANCE COVERAGE. SHE ALSO DOES NOT HAVE A HCP BUT WOULD LIKE MORE INFORMATION. INFO AND DOCUMENT PROVIDED. CM DISCUSSED THE USE OF [facility] OR [facility] WITH PT AND THE FACT THAT SHE WOULD BE ELIGIBLE SINCE SHE HAS HEALTH SAFETY NET. CM WILL ALSO SEND A REFERRAL TO [facility] [place] [facility]. CURRENT DC PLAN IS HOME WITH NO SERVICES PT WILL SELF ARRANGE TRANSPORTATION
--- NOTE | 2020-12-19 13:33 | PM.DS ---
DS: Providers Provider Date of Service: 12/19/20 Date of admission: 12/17/20 20:39 Primary care physician: Unknown Physician Consults: 12/17/20 21:38 Consult to Gastroenterology Routine Consulting Provider: Roma Landers Reason for consultation: UC flare Has provider been notified: No DS: Diagnosis Discharge Diagnosis (1) Acute blood loss anemia: Status: Acute (2) Colitis: Status: Acute (3) Ulcerative colitis, acute: Status: Acute (4) Symptomatic anemia: Status: Acute DS: Medications Discharge Medications Home Medications: Previous Rx's Medication Instructions Recorded mesalamine [Lialda] 2.4 g PO BIDWMEAL #0 tab 12/19/20 omeprazole 40 mg PO DAILY #30 cap 12/19/20 prednisone See Taper PO DAILY #50 tab 12/19/20 DS: Summary Hospital Course Hospital Course: admission note HPI this is a 35-year-old female with past medical history of colitis who presents to the hospital with 1 month history of diarrhea and abdominal pain. Patient reports that her abdominal pain is localized to the middle of the abdomen radiating to the lower abdomen, feels crampy, 10/10, associated with bloody diarrhea about 5 to and today. Patient waited this long to come into the ED because she thought it would get better. Patient reports that she has not had a lot of follow-up outpatient due to lack of insurance. She denies any chest pain, no headache, no change in vision, no shortness of breath, no urinary symptoms and no lower extremity edema. Patient has been eating and drinking well, some nausea with no vomiting. On arrival to the ED patient hemodynamically stable with no significant abnormal vitals Labs are significant for WBC count of 8.2, hemoglobin of 5.2 which dropped from 11.1 on June of 2019, hematocrit of 17.7, CT abdomen showed diffuse colitis, with no evidence of gastrointestinal bleeding Hospital course the patient was admitted to the hospital for treatment of acute ulcerative colitis as CT scan of the abdomen pelvis was consistent with diffuse colitis with no fever or leukocytosis. Treated with IV steroids , Flagyl, fluid bowel rest with advancing as she tolerated. evaluated by Gastroenterology who recommended to increase home dose mesalamine to 2 tablets twice daily and to be discharged on tapering dose of steroids with no need antibiotics. she was also noted to symptomatic anemia with hemoglobin of 5.2 at time presentation requiring 2 units blood transfusion with improvement of hemoglobin level to 8.6 at the day of discharge. Iron studies were within normal. GI recommended no intervention as the bleeding is secondary to the flare up of ulcerative colitis. She is supposed to follow up with GI as outpatient. Time Spent with Patient Time attestation: Total time spent providing and/or coordinating discharge services: Discharge coordination time: Greater than 30 minutes Quality: Stroke Does the patient have a stroke diagnosis?: No Physical Exam Vital Signs: Vital Signs: Last Vital Signs Temp 96.3 F L 12/19/20 07:44 Pulse 89 12/19/20 11:04 Resp 18 12/19/20 11:04 BP 91/63 12/19/20 11:04 Pulse Ox 100 12/19/20 11:04 Body Mass Index 20.2 Const: Other: Constitutional : Alert, oriented, not in distress Neck : Normal inspection, Supple Cardiovascular : RRR, S1 S2, no lower extremity edema Respiratory : Good bilateral air entry, no crackles, wheezes or rhonchi Gastrointestinal: soft, lax, Normal bowel sounds, No tenderness very minimal with deep palpation Skin : Warm/Dry, No rash Neurological : Alert & oriented x3, No focal deficit DS: Data Data Completed and Pending Labs on day of discharge: Laboratory Results - last 24 hr 12/18/20 12/19/20 12/19/20 05:08 08:49 08:49 WBC 11.0 H RBC 3.51 L Hgb 8.6 L Hct 28.2 L MCV 80.3 MCH 24.5 L MCHC 30.5 L RDW 18.6 H Plt Count 497 H D MPV 8.9 L Absolute Nucleated RBC 0.000 Nucleated RBC % (auto) 0.0 Sodium 136 Potassium 4.5 Chloride 106 Carbon Dioxide 20 L Anion Gap 15 BUN 7 L Creatinine 0.90 Estim Creat Clear Calc 78.6 Estimated GFR > 60 Random Glucose 240 H D Calcium 8.7 D Iron 211 H TIBC 356 % Saturation 59 H Unsat Iron Binding 145 Preliminary micro results at discharge 12/17/20 17:22 Blood Culture - Preliminary Blood - Venous No growth after 24 hours. 12/17/20 17:12 Blood Culture - Preliminary Blood - Venous No growth after 24 hours. Discharge Plan Discharge Patient Disposition: Home, Self-Care Discharge Diagnosis: ulcerative colitis flare Blood-loss anemia Referrals: Physician,Unknown [Primary Care Provider] - 1 Week Discharge Medications: New prednisone 10 mg tablet See Taper mg PO DAILY Qty: 50 RF: 0 omeprazole 40 mg capsule,delayed release(DR/EC) 40 mg PO DAILY Qty: 30 RF: 0 Changed mesalamine [Lialda] 1.2 gram Tablet,Delayed Release (Dr/Ec) 2.4 g PO BIDWMEAL Qty: 0 RF: 0 Discharge Orders: Discharge Order (Routine); Ordered 12/19/20 Ordered By: Latosha Monroy Diet: advance to usual diet Activity on Discharge: As tolerated Stand Alone Forms: Patient Portal Discharge page Care Plan Goals: Read below Health Concerns: Read below Plan of Treatment: you were admitted to the hospital for evaluation of abdominal pain and bloody diarrhea. Images were consistent with inflammation of your colon and your blood test showed significant drop in your hemoglobin requiring blood transfusion with good response as your hemoglobin improved from 5.2-8.6 time of discharge. Treated with IV fluid, bowel rest IV steroids and antibiotics you have diarrhea and abdominal pain resolved and he became able to tolerate diet. Evaluated by senior accounting specialist who recommended to take mesalamine twice daily and to start prednisone tapering dose. Assessment: Continue prednisone tapering dose as prescribed Take omeprazole daily Increase mesalamine to 2 tablets twice Daily To follow-up with Dr Landers from Gastroenterology as outpatient
== END 2020-12-19 14:35 | disposition home or self-care (01) | DRG 245 ==
LOC: HO.ED 19:31 → HO.EDOVER 20:44 → HO.IMC 21:17
PROVIDERS: Physician Assistant; Admitting Provider Internal Medicine; Emergency Provider Internal Medicine; Visit Provider Student in an Organized Health Care Education/Training Program
DX: K51.911 Ulcerative colitis, unspecified with rectal bleeding (principal); D62 Acute posthemorrhagic anemia; Z20.822 Contact with and (suspected) exposure to COVID-19; Z79.899 Other long term (current) drug therapy
CPT/HCPCS: 36415; 71045; 74178; 80048; 82947; 83540; 83605; 84484; 85014; 85018; 85025; 85027; 86850; 86900; 86901; 86923; 87040; 87635; 93005; 99285; J1956; J2920; P9016; Q9967

== ENCOUNTER → 2021-03-15 10:29 | Outpatient (BNVA) | payer MEDICAID, OTHER, SELFPAY | PROVIDERS: Visit Provider Internal Medicine Gastroenterology ==